=== PATIENT | male | born 1960 | race Caucasian/White ===

== ENCOUNTER 2022-04-15 09:02 | Outpatient (RCR) | payer MEDICAID, SELFPAY ==
--- NOTE | 2022-04-15 10:26 | HP.OTEVAL ---
Patient's Visit Information ALFIE BURGESS is a 62 year old M, referred to Occupational Therapy by ROCHELLE Vargas, with a diagnosis of LE lymphedema, cellulitis left LE. Date of Evaluation: 04/15/22 Occupational Therapist: Angie Wang, KIRTIR/L, CHT - Subjective This 62 year old male was seen for OT eval with dx of LE Lymphedema. pt states he went to ER due to a cellulitis infection. pt states he has been on 4 rounds of different antibiotics. pt states his skin has changed colors and his legs feel firm. pt states he will get some shooting pains. pt states he has been using an ointment to put on his legs and athletes foot cream. pt states he has been elevating his legs- pt states he rides a stationary bike for 35 min. pt states he has right leg sx at age 8 but nothing with his left LE. pt states he has had swelling in his LE since he started working at age 15 or 16. pt states he felt the swelling in his left leg has always been his left leg. - Pain bilateral LE 3 Pain Intensity Range: 3 - Lymphedema (Circumferential Measure) Mid-foot: right 25cm left 27cm Ankle: right 32cm left 32cm Lower calf: right 33cm left 36cm Largest calf: right 47cm left 49cm Below knee: right 45cm left 46.5cm - Lower Limb Functional Index Lower Extremity Functional Score: 56 - Goals Demonstrate a 20% reduction in edema by d/c: Yes Demonstrate adequate knowledge of self-massage by 2nd week: Yes Demonstrate adequate knowledge skin care/prec by 2nd week: Yes Demonstrate adequate knowledge therapeutic exercises by d/c: Yes Select approp compression garment w/donning/care/wear by d/c: Yes Voice need to replace compression garment every 4-6mo by dc: Yes - Rehabilitation General Assessment: pt demo with stage II of possible primary lymphedema as pt reports hx of left LE swelling since late teen years. pt demo need for skilled OT services 2-3 visits to ensure understanding of life long mtg. of lymphedema, lymph ex., self lymnph massage. and use of compression socks 20-30 mmHg. pt may benefit from home compression pump to assist in mtg. of his LE lymphedema. pt was receptive to initiating an aquatic ex. program to assist in circulation. pt receptive to use of knee high compression socks. pt to call in 2 -4 weeks with measurements as he [place] from our facility. pt to call with questions or concerns. Rehabilitation Potential: Questionable - Anticipated Interventions Education re assistive Equipment, Education re Diagnosis, Education re Life-long lymphedema Management, Education re Skin Care and Precautions, Education re Self Massage Techniques, Education re Correct Donning Tech,Care&Wearing Sched Comp Garments, Home Program - Visit Plan TEXT: Thank you for the opportunity to evaluate your patient. For Medicare and Medicare HMO plans, please review the plan of care and approve it. It will need to be FAXED BACK to us at [phone] for Medicare purposes. Please let me know if there are questions or concerns regarding this plan of care. Physician Signature: Date:
--- NOTE | 2022-06-24 15:24 | HP.OT.NRP ---
ALFIE BURGESS was seen in my office for initial evaluation on 04/15/22. The following Plan of Care was established for this patient: Anticipated Interventions: Education re assistive Equipment, Education re Diagnosis, Education re Life-long lymphedema Management, Education re Skin Care and Precautions, Education re Self Massage Techniques, Education re Correct Donning Tech,Care&Wearing Sched Comp Garments, Home Program This patient was last seen in our office 04/15/22. Pertinent comments regarding their Occupational therapy will appear below: Pt declined scheduling further apts. due to length of drive ( over an hour). Pt was advised to call with questions. at this time pt has not done so and due to time lapse in services pt d.c. At this point I will be discontinuing this patient from occupational therapy. I would be happy to see this patient again in the future if found appropriate by the physician. Thank you! Angie Wang, OTR/L, CHT
== END 2022-04-15 19:00 | disposition home or self-care (01) ==
LOC: OT 09:02
PROVIDERS: PCP Physician Assistant Medical; Referring Provider Physician Assistant Medical; Visit Provider Physician Assistant Medical
DX: I89.0 Lymphedema, not elsewhere classified (principal)
CPT/HCPCS: 97166; 97530